=== PATIENT | female | born 1995 | race Caucasian/White ===

== ENCOUNTER 2018-09-08 16:42 | Inpatient (IN) ==
[2018-09-08] MEDS ORDERED: *HR* Dextrose 50 % in Water (Syg) 50 ML SYRINGE IVP PRN (20:02)
[2018-09-08] MEDS ORDERED: D5% in 0.45% NACL 1,000 ML IVC PRN (20:02)
--- NOTE | 2018-09-08 20:24 | Internal Med History&Physical ---
<Nay Chun N - Last Filed: 09/08/18 21:28> Date of Encounter: 09/08/18 Time of Encounter: 20:24 Internal Medicine - H&P: HPI Chief complaint: DKA Admitted From: Hospital to Hospital Transfer Plans for Post Hospital Care: Home History of present illness: Ms. Leija is a 23 year old female with a history of type 1 diabetes mellitus who initially presented to [facility] due to abdominal pain and nausea, and was transferred to [facility] due to DKA. Patient reports abdominal pain with associated nausea that began the night before yesterday. She states that she has been unable to eat, emesis worsens her nausea. Patient states that she did attempt good work today; however, she was sent home due to acute illness. She presented to [facility] emergency department this afternoon complaining of sh ortness of breath, nausea, and right upper quadrant pain. Initial laboratory studies performed at [facility] were significant for the following: WBC 16, platelets 458, sodium 133, potassium 4.1, chloride 104, CO2 7.0, BUN 14, creatinine 0.9, and serum glucose 407. Lactic acid was within normal limits. Be ta hydroxybutyrate was significantly elevated at 12.97. Urinalysis was significant for an presence of red blood cells, white blood cells, and squamous epithelial cells, as well as 100 protein, >=1000 glucose, large ketones, trace leukocyte esterase, and high specific gravity. Past Med Surg Social Fam HX - Past Medical History Source: patient Medical history: diabetes - Past Surgical History Surgical History: - Social History Smoking Status: Never smoker Alcohol use: occasionally Drug use: none - Family History Father Adopted: No Living Status: Still Living Hx Family Endocrine Disorder: Yes Grandfather Hx Family Cardiac Disorders: Yes (CAD) Hx Family Endocrine Disorder: Yes (DM) Internal Medicine - H&P: Meds Allergy/AdvReac Type Severity Reaction Status Date / Time No Known Allergies Allergy Verified 09/08/18 21:32 All Systems PM: A 10-system review of systems was performed and is negative for pertinent findings except as documented above in the HPI. - Constitutional Constitutional: no chills, no fever(s) - Cardiovascular Cardiovascular ROS IM: no chest pain, no irregular heart rhythm - Respiratory Respiratory: dyspnea, pain on inspiration, no cough, no dyspnea on exertion, no wheezing, no chest congestion, no excessive phlegm production - Gastrointestinal Gastrointestinal: abdominal pain, nausea, no vomiting - Constitutional Exam: GENERAL: Well-developed well-nourished adult female in no acute distress. HEENT: Atraumatic and normocephalic. CARDIOVASCULAR: Regular rate and rhythm. S1 and S2 present. No murmurs, gallops, or rubs. RESPIRATORY: Clear to auscultation bilaterally. Chest rises and falls symmet rically with respiration. Patient tachypneic. GASTROINTESTINAL: Abdomen is soft, nontender, nondistended. EXTREMITIES: No clubbing, cyanosis, or edema present. SKIN: Warm, dry, and intact. NEUROLOGIC: Alert and oriented x3. Patient is cooperative with exam and answers questions appropriately. No apparent focal deficits present. PSYCHIATRIC: Mood and affect appear appropriate. - Assessment and Plan (1) DKA (diabetic ketoacidoses) Current Visit: Yes Status: Acute Assessment and plan: Initial laboratory studies performed at [facility] demonstrated sodium 133, potassium 4.1, chloride 104, CO2 7.0, and glucose 407. Initial anion gap was calculated at 22. Patient was started on insulin and bicarbonate gtt prior to transfer. Repeat laboratory studies in house demonstrated sodium 137, potassium 3.8, chloride 114, CO2 5, and glucose 130, with a calculated anion and gap of 18. In-house ABG demonstrated pH 7.07, PCO2 <13, and PO2 118. On exam, patient is tachypneic and tachycardic; however, she does not appear to have increased work of breathing. Initial beta-hydroxybutyric acid was significantly elevated at 12.97; repeat in- house study is elevated at 1.95. - Insulin and fluids per DKA protocol. - Inciting etiology unclear. Will obtain urine and blood cultures to rule out acute infectious etiology. - One dose of zosyn administered at outside facility due to concerns for UTI; will hold on additional antibiotics until cultures result. - Hemoglobin A1c pending. Qualifiers: Diabetes mellitus type: type 1 Diabetes mellitus complication detail: without coma Qualified Code(s): E10.10 - Type 1 diabetes mellitus with ketoacidosis without coma (2) Abdominal pain Current Visit: Yes Status: Acute Assessment and plan: Patient reported right upper quadrant pain associated with nausea upon initial presentation to outside emergency department. It is unclear if this is solely related to her DKA, or if this is a separate problem. CT of the abdomen and pelvis performed at [facility] was significant for 1.6 cm heterogeneous low attenuation area within the left kidney. - Management of DKA per protocol. - Consider repeat CT of the abdomen/pelvis with contrast if pain recurs or worsens. Qualifiers: Abdominal location: right upper quadrant Qualified Code(s): R10.11 - Right upper quadrant pain (3) Shortness of breath Current Visit: Yes Status: Acute Assessment and plan: Likely secondary to DKA and metabolic acidosis. Patient does not appear to be in respiratory distress and does not have evidence of labored breathing. - Management as above. (4) Diabetes mellitus type 1 Current Visit: Yes Status: Acute Assessment and plan: Plan as above for DKA. Hemoglobin A1c pending to evaluate baseline glucose control. Qualifiers: Diabetes mellitus complication status: with ketoacidosis Diabetes mellitus complication detail: without coma Qualified Code(s): E10.10 - Type 1 diabetes mellitus with ketoacidosis without coma (5) DVT prophylaxis Current Visit: Yes Status: Acute Assessment and plan: - SCDs. - Time Spent With Patient Total time spent is greater than 50% in coordination of care (as documented) at patient's floor/unit and/or counseling patient: <Anshul Castillo - Last Filed: 09/09/18 06:16> Date of Encounter: 09/08/18 Internal Medicine - H&P: HPI History of present illness: Ms. Leija is a 23 year old female All Systems PM: A 10-system review of systems was performed and is negative for pertinent findings except as documented above in the HPI. - Constitutional Vitals: Temp Pulse Resp BP Pulse Ox 97.6 F 103 21 139/85 100 09/09/18 00:55 09/09/18 06:00 09/09/18 06:00 09/09/18 06:00 09/09/18 06:00 Internal Med - H&P Results - Labs CBC & Chem 7: 09/08/18 20:57 09/09/18 03:38 Labs: Short CBC 09/08/18 Range/Units 20:57 WBC 20.8 H (4.3-11.1) K/mcL Hgb 13.2 (11.5-15.4) g/dL Hct 42.6 (35.3-44.9) % Plt Count 387 (140-400) K/mcL Neutrophils # 14.3 H (1.6-8.9) K/mcL BMP 09/08/18 09/08/18 09/09/18 20:57 20:57 01:09 Sodium 138 137 131 L Potassium 3.9 3.8 3.8 Chloride 112 H 114 H 118 H Carbon Dioxide 5 L* 5 L* 6 L* BUN 11 Creatinine 0.65 Glucose 130 H Calcium 8.2 L 09/09/18 03:38 Sodium 136 Potassium 3.0 L Chloride 116 H Carbon Dioxide 7 L* BUN Creatinine Glucose Calcium Liver Function 09/08/18 Range/Units 20:57 Total Bilirubin 0.3 (0.3-1.0) mg/dL AST 12 L (13-39) Units/L ALT 9 (7-52) Units/L Alkaline Phosphatase 81 (34-104) Units/L Albumin 4.4 (3.5-5.7) g/dL Urine 09/08/18 Range/Units 20:19 Urine Color Red A (Yellow) Urine Clarity Cloudy A (Clear) Urine pH 5.0 (5.0-8.0) pH Units Ur Specific [place] 1.024 (1.010-1.025) Urine Protein 100 H (Neg-Trace) mg/dL Urine Glucose (UA) >=1000 H (Normal) mg/dL - ABG Interpretation ABG results: 09/08/18 09/08/18 09/09/18 21:27 21:27 01:21 ABG pH 7.07 L* ABG pCO2 < 13 L* ABG pO2 118 H ABG HCO3 TNP ABG Total CO2 TNP ABG O2 Saturation TNP ABG Base Excess TNP VBG pH 7.02 L* 7.00 L* VBG pCO2 18 L 20 L VBG pO2 68 H 45 VBG HCO3 5 L 5 L 09/09/18 04:03 ABG pH ABG pCO2 ABG pO2 ABG HCO3 ABG Total CO2 ABG O2 Saturation ABG Base Excess VBG pH 7.18 L* D VBG pCO2 18 L VBG pO2 128 H VBG HCO3 7 L - Time Spent With Patient Total time spent is greater than 50% in coordination of care (as documented) at patient's floor/unit and/or counseling patient: - Attending Attestation I saw and evaluated the patient. I reviewed the residents note, performed my own physical examination and agree with findings and plan as documented in the residents note. Patient seen and examined on 09/08/18. Patient presented to [facility] with diabetic ketoacidosis. She is transferred to ICU for further management as there was no beds available at their facility. Patients lab work and vitals have improved, currently she is on insulin and fluids. We will continue to monitor her electrolytes, and titrate insulin as appropriate. We will continue to check her VBGs and follow the DKA protocol. Continue ICU management.
[2018-09-08] MEDS ORDERED: Naloxone 0.4 MG/ML INJ IVP PRN (21:02)
[2018-09-08 21:31] LABS: ABG PCO2 < 13 mmHg (35-45); ABG PH 7.07 pH Units (7.32-7.45); ABG PO2 118 mmHg (85-104)
[2018-09-08 21:35] LABS: VBG HCO3 5 mEq/L (21-27); VBG PCO2 18 mmHg (41-51); VBG PH 7.02 pH Units (7.32-7.42); VBG PO2 68 mmHg (25-50)
[2018-09-08 21:48] LABS: Magnesium 1.7 mg/dL (1.6-2.6); Phosphorous 2.2 mg/dL (2.7-4.5)
[2018-09-08 21:49] LABS: Potassium 3.8 mEq/L (3.5-5.1)
[2018-09-08 21:50] LABS: Alanine Aminotransferase 9 Units/L (7-52); Albumin 4.4 g/dL (3.5-5.7); Albumin/Globulin Ratio 1.6 (1.1-2.2); Alkaline Phosphatase 81 Units/L (34-104); Aspartate Amino Transferase 12 Units/L (13-39); BUN/Creatinine Ratio 17 (6-26); Bilirubin,Total 0.3 mg/dL (0.3-1.0); Blood Urea Nitrogen 11 mg/dL (6-20); Calcium 8.2 mg/dL (8.6-10.3); Carbon Dioxide 5 mEq/L (23-29); Chloride 112 mEq/L (98-107); Globulin 2.8 g/dL (2.4-3.5); Glucose 130 mg/dL (70-105); Osmolality,Calculated 287 (280-300); Phosphorous 2.2 mg/dL (2.7-4.5); Potassium 3.9 mEq/L (3.5-5.1); Sodium 138 mEq/L (136-145); Total Protein 7.2 g/dL (6.4-8.9); eGFR For Non-African Americans > 60 (> 60)
[2018-09-08 21:55] LABS: Basophils # 0.1 K/mcL (0.0-0.2); Basophils % 0.6 %; Hematocrit 42.6 % (35.3-44.9); Hemoglobin 13.2 g/dL (11.5-15.4); Immature Granulocytes % 1.9 % (0-4); Lymphocytes # 3.9 K/mcL (0.6-4.6); Lymphocytes % 18.6 %; Mean Corpuscular Hemoglobin 27.5 pg (28.0-33.3); Mean Corpuscular Volume 88.8 fL (83.0-100.0); Mean Platelet Volume 9.9 fL (9.4-12.4); Monocytes # 2.1 K/mcL (0.0-1.3); Neutrophils # 14.3 K/mcL (1.6-8.9); Platelet Count 387 K/mcL (140-400); Red Cell Distribution Width 14.8 % (11.5-14.5); Segmented Neutrophils % 68.9 %
[2018-09-08] MEDS: Insulin Human Regular 100 UNIT in 0.9 % Sodium Chloride 100 ML IVC SCH (22:00)
[2018-09-08] MEDS: D5% in 0.45% NACL w KCl 20 MEQ/1,000 ML MLS IVC PRN (22:00)
[2018-09-08 22:13] LABS: Bilirubin,Urine Negative (Negative); Blood,Urine Large (Negative); Clarity,Urine Cloudy (Clear); Color,Urine Red (Yellow); Glucose,Urine (UA) >=1000 mg/dL (Normal); Ketones,Urine >=160 mg/dL (Negative); Leukocyte Esterase,Urine Small (Negative); Nitrite,Urine Negative (Negative); Protein,Urine 100 mg/dL (Neg-Trace); Specific Gravity,Urine 1.024 (1.010-1.025); Urobilinogen,Urine Normal (Normal)
[2018-09-08 22:16] LABS: Bacteria,Urine None Seen per hpf (None-Few); Hyaline Casts,Urine None Seen per lpf (None-Few); RBC,Urine TNTC per hpf (0-3); Squamous Epithelial Cell,Urine Many per lpf (None-Few)
[2018-09-08] MEDS: 0.9 % Sodium Chloride 1,000 ML IVC SCH ×6 (22:16→23:25)
[2018-09-08] MEDS: 0.9 % Sodium Chloride w KCl 20 MEQ/1,000 ML MLS IVC SCH ×4 (22:16→22:57)
[2018-09-08] MEDS: 0.45 % Sodium Chloride w/KCl 20 MEQ/1,000 ML MLS IVC SCH ×4 (22:17→22:58)
[2018-09-08 23:02] LABS: Estimated Average Glucose 355 mg/dl
[2018-09-09 01:29] LABS: VBG HCO3 5 mEq/L (21-27); VBG PCO2 20 mmHg (41-51); VBG PO2 45 mmHg (25-50)
[2018-09-09 01:43] LABS: Potassium 3.8 mEq/L (3.5-5.1)
[2018-09-09] MEDS: D5% in 0.45% NACL w KCl 20 MEQ/1,000 ML MLS IVC PRN ×3 (02:09→10:40)
[2018-09-09 04:18] LABS: VBG HCO3 7 mEq/L (21-27); VBG PCO2 18 mmHg (41-51); VBG PH 7.18 pH Units (7.32-7.42); VBG PO2 128 mmHg (25-50)
[2018-09-09] MEDS ORDERED: Insulin Human Regular 100 UNIT in 0.9 % Sodium Chloride 100 ML IVC SCH (07:45)
--- NOTE | 2018-09-09 08:45 | Event Note ---
Date of Encounter: 09/09/18 Time of Encounter: 08:33 Patient was seen and examined. I agree with the progress note as written by the resident physician. Admitted from outside facility due to DKA. On an insulin drip. Glucose is in the high 100s this morning but remains in DKA. Symptoms arise she is feeling better. She has no abdominal pain or nausea. Does not see an kennel hand. Was diagnosed when she was 19. Takes Lantus 22 units in the morning and 20 units at night. She is also on a sliding scale. A1c 14.0. GEN: NAD CVS: RRR. S1, S2, No m/r/g RESP: CTAB ABD: Soft, NT, ND, +BS EXT: No edema. 2+ DP. No rashes NEURO: Nonfocal Continue DKA protocol. On insulin drip Once anion gap and acidosis resolves, we will give her a diet and long-acting subcutaneous insulin and stopp the insulin drip. A1c 14. Will benefit from outpatient follow-up with an kennel hand. Continue IV fluids. Replace electrolytes
[2018-09-09 09:02] LABS: BUN/Creatinine Ratio 16 (6-26); Blood Urea Nitrogen 8 mg/dL (6-20); Calcium 7.5 mg/dL (8.6-10.3); Carbon Dioxide 10 mEq/L (23-29); Chloride 114 mEq/L (98-107); Glucose 197 mg/dL (70-105); Osmolality,Calculated 282 (280-300); Potassium 2.9 mEq/L (3.5-5.1); Sodium 134 mEq/L (136-145); eGFR For Non-African Americans > 60 (> 60)
[2018-09-09] MEDS: Ondansetron 4 MG/2 ML VIAL IVP PRN (09:49)
[2018-09-09] MEDS ORDERED: D5% in Lactated Ringers 1,000 ML IVC SCH (11:45)
[2018-09-09] MEDS ORDERED: Potassium Chloride 40 MEQ, Lidocaine 1% 2 ML in D5% in Water 500 ML IVPB SCH (11:45)
[2018-09-09 12:00] LABS: BUN/Creatinine Ratio 14 (6-26); Blood Urea Nitrogen 7 mg/dL (6-20); Carbon Dioxide 12 mEq/L (23-29); Chloride 116 mEq/L (98-107); Glucose 177 mg/dL (70-105); Osmolality,Calculated 278 (280-300); Potassium 3.1 mEq/L (3.5-5.1); Sodium 133 mEq/L (136-145); eGFR For Non-African Americans > 60 (> 60)
[2018-09-09] MEDS: Insulin Human Regular 100 UNIT in 0.9 % Sodium Chloride 100 ML IVC SCH (13:19)
[2018-09-09] MEDS: D5% in Lactated Ringers 1,000 ML IVC SCH ×2 (14:41→21:46)
[2018-09-09] MEDS ORDERED: Potassium Chloride 40 MEQ, Lidocaine 1% 2 ML in D5% in Water 500 ML IVPB PRN (15:15)
[2018-09-09 15:23] LABS: BUN/Creatinine Ratio 14 (6-26); Blood Urea Nitrogen 6 mg/dL (6-20); Calcium 8.3 mg/dL (8.6-10.3); Carbon Dioxide 15 mEq/L (23-29); Chloride 114 mEq/L (98-107); Glucose 161 mg/dL (70-105); Osmolality,Calculated 285 (280-300); Potassium 3.1 mEq/L (3.5-5.1); Sodium 137 mEq/L (136-145); eGFR For Non-African Americans > 60 (> 60)
--- NOTE | 2018-09-09 16:28 | Internal Med Progress Note ---
Hospitalist Progress Note - Encounter Date of Encounter: 09/09/18 Time of Encounter: 10:01 - Subjective Interval History: Patient seen in ICU, lying comfortably in bed upon examination. Patient is a type I diabetic diagnosed at age 19. She is the mother of twin girls. She states that this is the first time she has ever had DKA. Mother states that jana cook doesn't take good care of herself and that she doesn't check her sugars or give herself insulin as she should. Patient denies any fever, chills, chest pain, shortness of breath, lightheadedness, nausea, vomiting, diarrhea, or constipation. She states that she is starting to gain a little bit of an appetite. She is having difficulty taking oral potassium supplements, however discussed the importance of this with patient due to her low potassium levels. - Exam Vitals: Temp Pulse Resp BP Pulse Ox 98.1 F 99 22 126/82 100 09/09/18 12:46 09/09/18 14:20 09/09/18 14:20 09/09/18 14:20 09/09/18 14:20 Exam: GENERAL: Well-developed well-nourished adult female in no acute distress. HEAD: Atraumatic and normocephalic. EYES: EOMI, conjunctiva clear, nonicteric MOUTH: Mucosa moist CARDIOVASCULAR: Regular rate and rhythm. S1 and S2 present. No murmurs, gallops, or rubs. RESPIRATORY: CTAB, no wheezing, rhonchi, or crackles noted GASTROINTESTINAL: Abdomen is soft, nontender, nondistended. EXTREMITIES: No clubbing, cyanosis, or edema present. SKIN: Warm, dry, and intact. NEUROLOGIC: Alert and oriented x3. No focal deficits noted. PSYCHIATRIC: Flat mood and affect - Assessment and Plan (1) DKA (diabetic ketoacidoses) Current Visit: Yes Status: Acute Assessment and Plan: Possibly secondary to viral illness with reported history of nausea and vomiting, although this was approximately 2 weeks prior Initial anion gap calculated at 22, with sodium 133, potassium 4.1, chloride 104, HCO3 7.0, glucose 407 She was transferred on insulin and bicarbonate drip Initial ABG in house with pH 7.07, PCO2 less than 13, PO2 118, HCO3 TNP A1c 14.0 beta hydroxybutyrate initially 12.97-1.95 on repeat Morning labs with sodium 134, chloride 114, potassium 2.9, HCO3 10 Calculated gap of 10, however HCO3 still low and Chloride elevated Insulin and fluids per DKA protocol Continuing insulin drip due to low bicarbonate Switch from D5 half-normal saline to D5 LR due to hyperchloridemia Continue IV and oral potassium supplementation until within normal range Q4 hour BMP (2) Abdominal pain Current Visit: Yes Status: Resolved Assessment and Plan: Resolved, likely secondary to DKA CT abdomen/pelvis at [facility] see significant for 1.6 cm heterogenous low attenuation area within the left kidney will consider repeat CT abdomen/pelvis with contrast if recurrence or worsening in abdominal pain (3) Shortness of breath Current Visit: Yes Status: Resolved Assessment and Plan: Resolved Likely secondary to metabolic acidosis in the setting of DKA (4) Diabetes mellitus type 1 Current Visit: Yes Status: Acute Assessment and Plan: Diagnosis at age 19 Poorly controlled A1c 14.0 Patient may benefit from diabetes education Recommend outpatient follow-up with [facility] DVT Prophylaxis: EPCDs - Time Spent with Patient Total time spent is greater than 50% in coordination of care (as documented) at patient's floor/unit and/or counseling patient: 25 - 35 minutes Plan of Care Discussed with: patient Internal Medicine: Result - Labs CBC & Chem 7: 09/08/18 20:57 09/09/18 14:54 Labs: Short CBC 09/08/18 Range/Units 20:57 WBC 20.8 H (4.3-11.1) K/mcL Hgb 13.2 (11.5-15.4) g/dL Hct 42.6 (35.3-44.9) % Plt Count 387 (140-400) K/mcL Neutrophils # 14.3 H (1.6-8.9) K/mcL BMP 09/08/18 09/08/18 09/09/18 20:57 20:57 01:09 Sodium 138 137 131 L Potassium 3.9 3.8 3.8 Chloride 112 H 114 H 118 H Carbon Dioxide 5 L* 5 L* 6 L* BUN 11 Creatinine 0.65 Glucose 130 H Calcium 8.2 L 09/09/18 09/09/18 09/09/18 03:38 07:52 11:32 Sodium 136 134 L 133 L Potassium 3.0 L 2.9 L 3.1 L Chloride 116 H 114 H 116 H Carbon Dioxide 7 L* 10 L* 12 L BUN 8 7 Creatinine 0.51 L 0.49 L Glucose 197 H 177 H Calcium 7.5 L 8.0 L 09/09/18 14:54 Sodium 137 Potassium 3.1 L Chloride 114 H Carbon Dioxide 15 L BUN 6 Creatinine 0.43 L Glucose 161 H Calcium 8.3 L Liver Function 09/08/18 Range/Units 20:57 Total Bilirubin 0.3 (0.3-1.0) mg/dL AST 12 L (13-39) Units/L ALT 9 (7-52) Units/L Alkaline Phosphatase 81 (34-104) Units/L Albumin 4.4 (3.5-5.7) g/dL Urine 09/08/18 Range/Units 20:19 Urine Color Red A (Yellow) Urine Clarity Cloudy A (Clear) Urine pH 5.0 (5.0-8.0) pH Units Ur Specific [place] 1.024 (1.010-1.025) Urine Protein 100 H (Neg-Trace) mg/dL Urine Glucose (UA) >=1000 H (Normal) mg/dL - ABG Interpretation ABG results: ABG ABG pH 7.07 pH Units (7.32-7.45) L* 09/08/18 21:27 ABG pCO2 < 13 mmHg (35-45) L* 09/08/18 21:27 ABG pO2 118 mmHg (85-104) H 09/08/18 21:27 ABG O2 Saturation TNP 09/08/18 21:27 Consult Discharge Plan - Plan Referrals: NONE,PCP [Primary Care Provider] - (1) DKA (diabetic ketoacidoses) Qualifiers: Diabetes mellitus type: type 1 Diabetes mellitus complication detail: without coma Qualified Code(s): E10.10 - Type 1 diabetes mellitus with ketoacidosis without coma (2) Abdominal pain Qualifiers: Abdominal location: right upper quadrant Qualified Code(s): R10.11 - Right upper quadrant pain (4) Diabetes mellitus type 1 Qualifiers: Diabetes mellitus complication status: with ketoacidosis Diabetes mellitus complication detail: without coma Qualified Code(s): E10.10 - Type 1 diabetes mellitus with ketoacidosis without coma
[2018-09-09 20:06] LABS: BUN/Creatinine Ratio 11 (6-26); Blood Urea Nitrogen 4 mg/dL (6-20); Calcium 8.2 mg/dL (8.6-10.3); Carbon Dioxide 12 mEq/L (23-29); Chloride 113 mEq/L (98-107); Glucose 257 mg/dL (70-105); Osmolality,Calculated 288 (280-300); Potassium 3.7 mEq/L (3.5-5.1); Sodium 136 mEq/L (136-145); eGFR For Non-African Americans > 60 (> 60)
[2018-09-09] MEDS: 0.9 % Sodium Chloride 1,000 ML IVC SCH (21:53)
[2018-09-09] MEDS: 0.45 % Sodium Chloride w/KCl 20 MEQ/1,000 ML MLS IVC SCH (21:53)
[2018-09-09] MEDS: 0.9 % Sodium Chloride w KCl 20 MEQ/1,000 ML MLS IVC SCH (21:53)
[2018-09-09 23:56] LABS: BUN/Creatinine Ratio 7 (6-26); Blood Urea Nitrogen 3 mg/dL (6-20); Calcium 8.1 mg/dL (8.6-10.3); Carbon Dioxide 14 mEq/L (23-29); Chloride 109 mEq/L (98-107); Glucose 283 mg/dL (70-105); Osmolality,Calculated 289 (280-300); Potassium 2.8 mEq/L (3.5-5.1); Sodium 136 mEq/L (136-145); eGFR For Non-African Americans > 60 (> 60)
[2018-09-10] MEDS: D5% in Lactated Ringers 1,000 ML IVC SCH ×2 (01:52→06:31)
[2018-09-10 03:21] LABS: Basophils % 0.7 %; Eosinophils % 0.4 %; Hematocrit 34.3 % (35.3-44.9); Hemoglobin 11.9 g/dL (11.5-15.4); Immature Granulocytes % 0.7 % (0-4); Lymphocytes # 2.4 K/mcL (0.6-4.6); Lymphocytes % 41.5 %; Mean Corpuscular HGB Conc 34.7 g/dL (31.6-35.5); Mean Corpuscular Hemoglobin 28.3 pg (28.0-33.3); Mean Platelet Volume 9.3 fL (9.4-12.4); Monocytes # 0.6 K/mcL (0.0-1.3); Monocytes % 9.8 %; Neutrophils # 2.7 K/mcL (1.6-8.9); Platelet Count 247 K/mcL (140-400); Red Cell Distribution Width 15.3 % (11.5-14.5); Segmented Neutrophils % 46.9 %
[2018-09-10 03:32] LABS: Mean Corpuscular Volume 81.7 fL (83.0-100.0)
[2018-09-10 03:47] LABS: VBG HCO3 17 mEq/L (21-27); VBG Ionized Calcium 1.23 mmol/L (1.15-1.35); VBG PCO2 28 mmHg (41-51); VBG PH 7.39 pH Units (7.32-7.42); VBG PO2 135 mmHg (25-50)
[2018-09-10 03:50] LABS: BUN/Creatinine Ratio 7 (6-26); Blood Urea Nitrogen 3 mg/dL (6-20); Calcium 8.6 mg/dL (8.6-10.3); Carbon Dioxide 18 mEq/L (23-29); Chloride 112 mEq/L (98-107); Glucose 162 mg/dL (70-105); Magnesium 1.4 mg/dL (1.6-2.6); Osmolality,Calculated 290 (280-300); Phosphorous < 1.0 mg/dL (2.7-4.5); Potassium 2.5 mEq/L (3.5-5.1); Sodium 140 mEq/L (136-145); eGFR For Non-African Americans > 60 (> 60)
[2018-09-10] MEDS: Potassium Effervescent 25 MEQ TABLET.EFF PO PRN ×2 (08:11→18:37)
[2018-09-10] MEDS ORDERED: Dextrose 4 GM Chewable Tablets PO PRN ×2 (08:12)
[2018-09-10] MEDS ORDERED: Dextrose Gel 15 GM/37.5 ML TUBE PO PRN ×2 (08:12)
[2018-09-10] MEDS ORDERED: D5% in Water 1,000 ML IVC PRN (08:12)
--- NOTE | 2018-09-10 08:17 | Internal Med Progress Note ---
<Bernardo Barahona - Last Filed: 09/10/18 08:14> Hospitalist Progress Note - Encounter Date of Encounter: 09/10/18 Time of Encounter: 08:14 - Subjective Interval History: No acute events overnight. patient denies chest pain, abdominal pain, nausea, vomiting, lower extremity pain. Patient's potassium was decreased to 2.4 a was not replaced. - Exam Vitals: Temp Pulse Resp BP Pulse Ox 97.9 F 97 20 113/66 98 09/10/18 04:30 09/10/18 08:00 09/10/18 04:00 09/10/18 04:00 09/10/18 04:00 Exam: General: pleasant, without distress Cardiovascualr: Regular rate and rhythm with no murmur, absent gallops or rubs, absent pedal edema, radial pulses 2 out of 4 Lungs: Clear to auscultation bilaterally, not in respiratory distress Abdomen: Soft nontender, nondistended positive bowel sounds, absent hepatomegaly Skin: warm and dry, absent rash, absent open wounds and nodules MSK: absent clubbing, cyanosis, joints without swelling Neuro: Alert oriented 3 Psych: Poor insight, judgment. - Assessment and Plan (1) DKA (diabetic ketoacidoses) Current Visit: Yes Status: Acute Assessment and Plan: Patient's anion gap has closed Her bicarbonate is up to 18 We will discontinue insulin drip as well as IV fluids and transition to subcutaneous heparin. Diabetic diet We will also replace potassium Repeat BMP in 4 hours. (2) Hypokalemia Current Visit: Yes Status: Acute Assessment and Plan: Plan as above. (3) Hypophosphatemia Current Visit: Yes Status: Acute Assessment and Plan: Replacing. DVT Prophylaxis: EPCDs - Time Spent with Patient Total time spent is greater than 50% in coordination of care (as documented) at patient's floor/unit and/or counseling patient: Internal Medicine: Result - Labs CBC & Chem 7: 09/10/18 03:06 09/10/18 03:06 Labs: Short CBC 09/10/18 Range/Units 03:06 WBC 5.7 D (4.3-11.1) K/mcL Hgb 11.9 (11.5-15.4) g/dL Hct 34.3 L (35.3-44.9) % Plt Count 247 (140-400) K/mcL Neutrophils # 2.7 (1.6-8.9) K/mcL BMP 09/09/18 09/09/18 09/09/18 07:52 11:32 14:54 Sodium 134 L 133 L 137 Potassium 2.9 L 3.1 L 3.1 L Chloride 114 H 116 H 114 H Carbon Dioxide 10 L* 12 L 15 L BUN 8 7 6 Creatinine 0.51 L 0.49 L 0.43 L Glucose 197 H 177 H 161 H Calcium 7.5 L 8.0 L 8.3 L 09/09/18 09/09/18 09/10/18 19:37 23:15 03:06 Sodium 136 136 140 Potassium 3.7 2.8 L 2.5 L* Chloride 113 H 109 H 112 H Carbon Dioxide 12 L 14 L 18 L BUN 4 L 3 L 3 L Creatinine 0.37 L 0.46 L 0.42 L Glucose 257 H 283 H 162 H Calcium 8.2 L 8.1 L 8.6 - ABG Interpretation ABG results: ABG ABG pH 7.07 pH Units (7.32-7.45) L* 09/08/18 21:27 ABG pCO2 < 13 mmHg (35-45) L* 09/08/18 21:27 ABG pO2 118 mmHg (85-104) H 09/08/18 21:27 ABG O2 Saturation TNP 09/08/18 21:27 Consult Discharge Plan - Plan Referrals: NONE,PCP [Primary Care Provider] - <Cyrus Garcia - Last Filed: 09/10/18 18:51> Hospitalist Progress Note - Encounter Date of Encounter: 09/10/18 - Exam Vitals: Temp Pulse Resp BP Pulse Ox 98.1 F 93 15 122/84 99 09/10/18 16:00 09/10/18 15:00 09/10/18 15:00 09/10/18 15:00 09/10/18 15:00 - Assessment and Plan (1) DKA (diabetic ketoacidoses) Current Visit: Yes Status: Acute (2) DVT prophylaxis Current Visit: Yes Status: Acute (3) Abdominal pain Current Visit: Yes Status: Resolved (4) Shortness of breath Current Visit: Yes Status: Resolved (5) Diabetes mellitus type 1 Current Visit: Yes Status: Acute - Time Spent with Patient Total time spent is greater than 50% in coordination of care (as documented) at patient's floor/unit and/or counseling patient: Internal Medicine: Result - Labs CBC & Chem 7: 09/10/18 03:06 09/10/18 16:07 Labs: Short CBC 09/10/18 Range/Units 03:06 WBC 5.7 D (4.3-11.1) K/mcL Hgb 11.9 (11.5-15.4) g/dL Hct 34.3 L (35.3-44.9) % Plt Count 247 (140-400) K/mcL Neutrophils # 2.7 (1.6-8.9) K/mcL BMP 09/09/18 09/09/18 09/10/18 19:37 23:15 03:06 Sodium 136 136 140 Potassium 3.7 2.8 L 2.5 L* Chloride 113 H 109 H 112 H Carbon Dioxide 12 L 14 L 18 L BUN 4 L 3 L 3 L Creatinine 0.37 L 0.46 L 0.42 L Glucose 257 H 283 H 162 H Calcium 8.2 L 8.1 L 8.6 09/10/18 09/10/18 09/10/18 08:35 13:45 16:07 Sodium 137 135 L 138 Potassium 3.5 D 3.5 3.1 L Chloride 109 H 106 105 Carbon Dioxide 19 L 22 L 24 BUN 2 L 4 L 4 L Creatinine 0.40 L 0.58 L 0.45 L Glucose 237 H 328 H 219 H Calcium 8.1 L 8.1 L 8.5 L - ABG Interpretation ABG results: ABG ABG pH 7.07 pH Units (7.32-7.45) L* 09/08/18 21:27 ABG pCO2 < 13 mmHg (35-45) L* 09/08/18 21:27 ABG pO2 118 mmHg (85-104) H 09/08/18 21:27 ABG O2 Saturation TNP 09/08/18 21:27 - Attending Attestation I examined this patient and my medical decision-making was reviewed with the Resident Physician. I agree with the documented findings, disposition and treatment plan as described except to the extent set forth below. <Bernardo Barahona - Last Filed: 09/10/18 08:14> (1) DKA (diabetic ketoacidoses) Qualifiers: Diabetes mellitus type: type 1 Diabetes mellitus complication detail: without coma Qualified Code(s): E10.10 - Type 1 diabetes mellitus with ketoacidosis without coma <Cyrus Garcia - Last Filed: 09/10/18 18:51> (1) DKA (diabetic ketoacidoses) Qualifiers: Diabetes mellitus type: type 1 Diabetes mellitus complication detail: without coma Qualified Code(s): E10.10 - Type 1 diabetes mellitus with ketoacidosis without coma (3) Abdominal pain Qualifiers: Abdominal location: right upper quadrant Qualified Code(s): R10.11 - Right upper quadrant pain (5) Diabetes mellitus type 1 Qualifiers: Diabetes mellitus complication status: with ketoacidosis Diabetes mellitus complication detail: without coma Qualified Code(s): E10.10 - Type 1 diabetes mellitus with ketoacidosis without coma
[2018-09-10] MEDS: Insulin DETEMIR 100 UNIT/ML X5UNITS SQ SCH ×2 (08:55→21:29)
[2018-09-10] MEDS: Ondansetron 4 MG/2 ML VIAL IVP PRN (09:00)
[2018-09-10 09:06] LABS: BUN/Creatinine Ratio 5 (6-26); Blood Urea Nitrogen 2 mg/dL (6-20); Calcium 8.1 mg/dL (8.6-10.3); Carbon Dioxide 19 mEq/L (23-29); Chloride 109 mEq/L (98-107); Glucose 237 mg/dL (70-105); Osmolality,Calculated 288 (280-300); Potassium 3.5 mEq/L (3.5-5.1); Sodium 137 mEq/L (136-145); eGFR For Non-African Americans > 60 (> 60)
[2018-09-10] MEDS: Insulin LISPRO 300 UNITS/3 ML VIAL SQ SCH ×2 (12:10→17:00)
[2018-09-10 14:19] LABS: BUN/Creatinine Ratio 7 (6-26); Blood Urea Nitrogen 4 mg/dL (6-20); Calcium 8.1 mg/dL (8.6-10.3); Carbon Dioxide 22 mEq/L (23-29); Chloride 106 mEq/L (98-107); Glucose 328 mg/dL (70-105); Osmolality,Calculated 290 (280-300); Potassium 3.5 mEq/L (3.5-5.1); Sodium 135 mEq/L (136-145); eGFR For Non-African Americans > 60 (> 60)
[2018-09-10 14:24] LABS: Magnesium 1.6 mg/dL (1.6-2.6)
[2018-09-10 16:41] LABS: BUN/Creatinine Ratio 9 (6-26); Blood Urea Nitrogen 4 mg/dL (6-20); Calcium 8.5 mg/dL (8.6-10.3); Carbon Dioxide 24 mEq/L (23-29); Chloride 105 mEq/L (98-107); Glucose 219 mg/dL (70-105); Osmolality,Calculated 290 (280-300); Potassium 3.1 mEq/L (3.5-5.1); Sodium 138 mEq/L (136-145); eGFR For Non-African Americans > 60 (> 60)
[2018-09-11 05:46] LABS: BUN/Creatinine Ratio 29 (6-26); Blood Urea Nitrogen 9 mg/dL (6-20); Calcium 8.6 mg/dL (8.6-10.3); Carbon Dioxide 27 mEq/L (23-29); Chloride 108 mEq/L (98-107); Glucose 77 mg/dL (70-105); Osmolality,Calculated 287 (280-300); Potassium 2.7 mEq/L (3.5-5.1); Sodium 140 mEq/L (136-145); eGFR For Non-African Americans > 60 (> 60)
[2018-09-11] MEDS: Insulin LISPRO 300 UNITS/3 ML VIAL SQ SCH ×2 (07:55→12:00)
[2018-09-11] MEDS ORDERED: Potassium Effervescent 25 MEQ TABLET.EFF PO ONE (08:10)
[2018-09-11] MEDS: Insulin DETEMIR 100 UNIT/ML X5UNITS SQ SCH (08:21)
[2018-09-11] MEDS: Potassium Effervescent 25 MEQ TABLET.EFF PO PRN (08:21)
[2018-09-11 09:21] LABS: Magnesium 1.8 mg/dL (1.6-2.6); Phosphorous 2.9 mg/dL (2.7-4.5)
[2018-09-11 11:45] VITALS: BP 113/75
--- NOTE | 2018-09-11 13:23 | Discharge Summary ---
<Bernardo Barahona - Last Filed: 09/11/18 13:19> - NOTES TO OUTPATIENT PROVIDER Notes to Outpatient Provider: Presented with DKA. Changed her glargine regimen to 25 units bid. Orders not resulted at time of discharge: Pending orders 09/08/18 20:57 Culture,Blood [BC] Routine Drug Screen 9 Reflex Conf Qnt Stat Date of Encounter: 09/11/18 Time of Encounter: 13:20 - Discharge Diagnosis (1) DKA (diabetic ketoacidoses) Priority: Primary Status: Resolved Qualifiers: Diabetes mellitus type: type 1 Diabetes mellitus complication detail: without coma Qualified Code(s): E10.10 - Type 1 diabetes mellitus with ketoacidosis without coma (2) Hypokalemia Priority: Secondary Status: Resolved (3) Hypophosphatemia Priority: Secondary Status: Resolved Hospital course: Ms. Leija is a 23 year old female presented with diabetic ketoacidosis. Patient's A1c was 14. Likely this is secondary to noncompliance. Patient was placed on DKA protocol until her anion gap was closed and bicarbonate was greater than 18. Furthermore her potassium, magnesium and phosphorus were replaced on to normalize. Patient's long-acting insulin was increased to 25 units twice a day. Patient is tolerating her diet today. Ambulating independently. Patient will follow-up with PCP. We will also place a endocrinology consult. Discharge discussed with: patient - Time Spent with Patient Total time spent providing and/or coordinating discharge services: - Discharge Medications Prescriptions: Continue Insulin LISPRO [Admelog Solostar] 6 - 30 unit SQ TID Changed Insulin Glargine,Hum.rec.anlog [Basaglar Kwikpen U-100] 25 unit SQ QAM #1 vial Insulin Glargine,Hum.rec.anlog [Basaglar Kwikpen U-100] 25 unit SQ QPM #1 vial Home Medications: Insulin LISPRO [Admelog Solostar] 6 - 30 unit SQ TID 09/09/18 [History] Insulin Glargine,Hum.rec.anlog [Basaglar Kwikpen U-100] 25 unit SQ QAM #1 vial 09/11/18 [Rx] Insulin Glargine,Hum.rec.anlog [Basaglar Kwikpen U-100] 25 unit SQ QPM #1 vial 09/11/18 [Rx] Allergies/Adverse Reactions: Allergy/AdvReac Type Severity Reaction Status Date / Time No Known Allergies Allergy Verified 09/08/18 21:32 Date of admission: 09/08/18 19:46 Primary care physician: PCP NONE Discharging clinician: Bernardo Barahona Anticipated date of discharge: 09/11/18 - Constitutional Vitals: Temp Pulse Resp BP Pulse Ox 97.9 F 94 16 113/75 100 09/11/18 11:43 09/11/18 11:43 09/11/18 11:43 09/11/18 11:43 09/11/18 11:43 Exam: General: pleasant, without distress Cardiovascualr: Regular rate and rhythm with no murmur, absent gallops or rubs, absent pedal edema, radial pulses 2 out of 4 Lungs: Clear to auscultation bilaterally, not in respiratory distress Abdomen: Soft nontender, nondistended positive bowel sounds, absent hepatomegaly Skin: warm and dry, absent rash, absent open wounds and nodules MSK: absent clubbing, cyanosis, joints without swelling Neuro: Alert oriented 3 Psych: Poor insight, judgment. - Patient Status Disposition: Home, Self-Care Functional capacity at discharge: independent ambulation Overall status at discharge: patient is progressing back to baseline - Discharge Instructions Instructions: Diabetes Mellitus Type 1 in Adults (DC) Follow Up With: Sam Taho [Other] - 09/22/18 2:15 pm Roxanne Urbano MD [Partnered Physician] - (WEB REFERAL MADE, OFFICE SHOULD CALL YOU WITH AN APPOINTMENT DATE AND TIME. THANK YOU!) - Diet and Activity Activity: as per physical therapy, increase activity as tolerated Diet: diabetic diet <Cyrus Garcia - Last Filed: 09/11/18 17:09> Orders not resulted at time of discharge: Pending orders 09/08/18 20:57 Culture,Blood [BC] Routine Drug Screen 9 Reflex Conf Qnt Stat Date of Encounter: 09/11/18 - Discharge Diagnosis (1) DKA (diabetic ketoacidoses) Status: Resolved Qualifiers: Diabetes mellitus type: type 1 Diabetes mellitus complication detail: without coma Qualified Code(s): E10.10 - Type 1 diabetes mellitus with ketoacidosis without coma (2) DVT prophylaxis Status: Acute (3) Abdominal pain Status: Resolved Qualifiers: Abdominal location: right upper quadrant Qualified Code(s): R10.11 - Right upper quadrant pain (4) Shortness of breath Status: Resolved (5) Diabetes mellitus type 1 Status: Acute Qualifiers: Diabetes mellitus complication status: with ketoacidosis Diabetes mellitus complication detail: without coma Qualified Code(s): E10.10 - Type 1 diabetes mellitus with ketoacidosis without coma Hospital course: Ms. Leija is a 23 year old female - Time Spent with Patient Total time spent providing and/or coordinating discharge services: Date of admission: 09/08/18 19:46 Primary care physician: PCP NONE - Constitutional Vitals: Temp Pulse Resp BP Pulse Ox 97.9 F 94 16 113/75 100 09/11/18 11:43 09/11/18 11:43 09/11/18 11:43 09/11/18 11:43 09/11/18 11:43 - Attending Attestation I examined this patient and my medical decision-making was reviewed with the Resident Physician. I agree with the documented findings, disposition and treatment plan as described except to the extent set forth below.
[2018-09-11 20:27] LABS: Amphetamines NEGATIVE ng/mL (Cutoff 30); Barbiturates NEGATIVE ng/mL (Cutoff 75); Benzodiazepines NEGATIVE ng/mL (Cutoff 75); Cocaine NEGATIVE ng/mL (Cutoff 30); Methadone NEGATIVE ng/mL (Cutoff 40); Methamphetamines NEGATIVE ng/mL (Cutoff 30); Opiates NEGATIVE ng/mL (Cutoff 30); Phencyclidine NEGATIVE ng/mL (Cutoff 15)
== END 2018-09-11 15:04 | disposition home or self-care (01) | DRG 420 ==
LOC: SUATTDRO 19:46 → ICNU 19:46 → 2ANU 09-10 17:44
PROVIDERS: ADMIT Internal Medicine; ATTEND Student in an Organized Health Care Education/Training Program